=== PATIENT | male | born 2000 | race Caucasian/White ===

== ENCOUNTER 2022-05-12 08:46 | Inpatient (IN) | payer BC, SELFPAY ==
[2022-05-12] MEDS ORDERED: Acetaminophen 325 MG TAB PO PRN (10:55)
[2022-05-12 11:01] VITALS: BMI 18.8
[2022-05-12] MEDS ORDERED: FLU VACC QS2022-23(6MOS UP)/PF 60 MCG/0.5 ML SYRINGE IM ONE (11:15)
[2022-05-12 12:32] LABS: #Eosinphils 0.1 thou/uL (0.0-0.7); #Lymphocytes 1.8 thou/uL (1.20-3.40); #Monocytes 0.9 thou/uL (0.11-0.59); %Basophils 0.1 % (0.0-1.0); %Lymphocytes 20.6 % (21.0-51.0); %Monocytes 9.9 % (0.0-10.0); %Neutrophils 68.3 % (42.0-75.0); Hemoglobin 15.3 g/dL (14.0-18.0); Mean Corpuscular HGB CONC 34.7 g/dL (32.0-36.0); Mean Corpuscular Hemoglobin 30.7 pg (27.0-31.0); Mean Corpuscular Volume 88.4 fl (78.0-98.0); Mean Platelet Volume 9.6 fL (7.4-10.4); Platelet Count 135 10x3/uL (130-400); RBC Distribution Width 11.8 % (11.5-14.5); Red Blood Cell (RBC) Count 4.99 mill/uL (4.70-6.10); White Blood Cell (WBC) Count 8.8 10x3/uL (4.8-10.8)
[2022-05-12 12:53] LABS: Anion Gap 11 mmol/L (10-20); BUN (Urea Nitrogen) 14 mg/dL (8.9-20.6); Calc. Creatinine Clearance 127 mL/min (70-130); Calcium 9.6 mg/dL (7.8-10.44); Carbon Dioxide 23 mmol/L (22-29); Chloride 107 mmol/L (98-107); Estimated GFR 129; Glucose 94 mg/dL (70-105); Potassium 4.5 mmol/L (3.5-5.1); Sodium 136 mmol/L (136-145)
[2022-05-12] MEDS ORDERED: SUGAMMADEX SODIUM 200 MG/2 ML VIAL ONE (13:22)
[2022-05-12] MEDS ORDERED: Midazolam HCl 2 mg/2 ml Vial ONE ×2 (13:22→13:25)
[2022-05-12] MEDS ORDERED: fentaNYL PF 100 MCG/2 ML SYRINGE ONE (13:22)
[2022-05-12] MEDS ORDERED: Sodium Chloride 0.9% 100 ML ONE (13:26)
[2022-05-12] MEDS ORDERED: CEFAZOLIN 2 GM VIAL ONE (13:26)
[2022-05-12] MEDS ORDERED: Ondansetron PF 4 MG/2 ML Vial ONE (13:42)
[2022-05-12] MEDS ORDERED: Rocuronium Bromide 10 MG/ML (10ML VIAL) ONE (13:42)
[2022-05-12] MEDS ORDERED: PROPOFOL 200 MG/20 ML VIAL ONE (13:42)
[2022-05-12] MEDS ORDERED: Ketorolac Tromethamine 30 MG/ML VIAL ONE (13:42)
[2022-05-12] MEDS ORDERED: Bupivacaine HCl 0.5%/Epinephrine 1:200,000/PF 30 ml Vial ONE (14:31)
[2022-05-12] MEDS ORDERED: Ondansetron PF 4 MG/2 ML Vial IVP PRN (14:59)
[2022-05-12] MEDS ORDERED: Fentanyl 100 MCG/2 ML VIAL SLOW IVP PRN (14:59)
[2022-05-12] MEDS ORDERED: FENTANYL 50 MCG/ML 1 ML VIAL ONE (15:02)
[2022-05-12] MEDS ORDERED: FENTANYL 50 MCG/ML 1 ML VIAL SLOW IVP PRN (15:15)
[2022-05-12] MEDS: Lactated Ringer's 1,000 ML IV SCH ×2 (17:22→22:04)
[2022-05-12] MEDS: Ketorolac Tromethamine 30 MG/ML VIAL IVP SCH ×2 (17:27→23:19)
[2022-05-12] MEDS: FENTANYL 50 MCG/ML 1 ML VIAL SLOW IVP PRN (22:45)
[2022-05-13] MEDS: Lactated Ringer's 1,000 ML IV SCH ×3 (04:00→20:00)
[2022-05-13] MEDS: FENTANYL 50 MCG/ML 1 ML VIAL SLOW IVP PRN (04:34)
[2022-05-13] MEDS: Ketorolac Tromethamine 30 MG/ML VIAL IVP SCH ×4 (05:00→23:25)
[2022-05-13 06:02] LABS: #Eosinphils 0.1 thou/uL (0.0-0.7); #Monocytes 1.2 thou/uL (0.11-0.59); #Neutrophils 5.9 thou/uL (1.40-6.50); %Basophils 0.2 % (0.0-1.0); %Eosinophils 1.3 % (0.0-10.0); %Monocytes 12.4 % (0.0-10.0); %Neutrophils 64.1 % (42.0-75.0); Hemoglobin 13.8 g/dL (14.0-18.0); Mean Corpuscular HGB CONC 33.6 g/dL (32.0-36.0); Mean Corpuscular Hemoglobin 29.9 pg (27.0-31.0); Mean Platelet Volume 9.8 fL (7.4-10.4); Platelet Count 129 10x3/uL (130-400); RBC Distribution Width 11.9 % (11.5-14.5); Red Blood Cell (RBC) Count 4.63 mill/uL (4.70-6.10); White Blood Cell (WBC) Count 9.3 10x3/uL (4.8-10.8)
[2022-05-13 06:32] LABS: Anion Gap 10 mmol/L (10-20); BUN (Urea Nitrogen) 12 mg/dL (8.9-20.6); Calc. Creatinine Clearance 133 mL/min (70-130); Carbon Dioxide 26 mmol/L (22-29); Chloride 104 mmol/L (98-107); Estimated GFR 131; Glucose 98 mg/dL (70-105); Potassium 4.5 mmol/L (3.5-5.1); Sodium 135 mmol/L (136-145)
[2022-05-13] MEDS: HYDROcodone/Acetaminophen 5/325 mg Tablet PO PRN ×2 (09:29→20:40)
[2022-05-14] MEDS: Lactated Ringer's 1,000 ML IV SCH ×3 (04:00→21:12)
[2022-05-14] MEDS: Ketorolac Tromethamine 30 MG/ML VIAL IVP SCH ×4 (05:45→23:54)
[2022-05-14] MEDS ORDERED: Senokot 8.6 MG TAB PO PRN (07:52)
[2022-05-14] MEDS: HYDROcodone/Acetaminophen 5/325 mg Tablet PO PRN (09:55)
[2022-05-14] MEDS: Famotidine 20 MG TAB PO SCH ×2 (09:56→21:12)
[2022-05-14] MEDS: Enoxaparin Sodium 40 MG/0.4 ML SYRINGE SC SCH (09:56)
[2022-05-15] MEDS: Lactated Ringer's 1,000 ML IV SCH ×3 (04:23→19:43)
[2022-05-15] MEDS: Ketorolac Tromethamine 30 MG/ML VIAL IVP SCH ×4 (05:36→23:57)
[2022-05-15] MEDS: Famotidine 20 MG TAB PO SCH ×2 (09:10→21:20)
[2022-05-15] MEDS: Enoxaparin Sodium 40 MG/0.4 ML SYRINGE SC SCH ×2 (09:10→09:47)
[2022-05-15] MEDS: HYDROcodone/Acetaminophen 5/325 mg Tablet PO PRN ×2 (09:27→21:20)
[2022-05-16] MEDS: Lactated Ringer's 1,000 ML IV SCH ×3 (04:32→20:00)
[2022-05-16] MEDS: Ketorolac Tromethamine 30 MG/ML VIAL IVP SCH ×4 (05:26→23:15)
[2022-05-16] MEDS: Famotidine 20 MG TAB PO SCH ×2 (08:48→23:09)
[2022-05-16] MEDS: Enoxaparin Sodium 40 MG/0.4 ML SYRINGE SC SCH (08:49)
[2022-05-16] MEDS: HYDROcodone/Acetaminophen 5/325 mg Tablet PO PRN ×2 (15:42→23:10)
[2022-05-17] MEDS: Lactated Ringer's 1,000 ML IV SCH ×3 (04:00→23:08)
[2022-05-17] MEDS: Ketorolac Tromethamine 30 MG/ML VIAL IVP SCH ×3 (05:54→17:27)
[2022-05-17] MEDS: Enoxaparin Sodium 40 MG/0.4 ML SYRINGE SC SCH (09:04)
[2022-05-17] MEDS: Famotidine 20 MG TAB PO SCH ×2 (09:04→20:27)
[2022-05-17] MEDS: HYDROcodone/Acetaminophen 5/325 mg Tablet PO PRN (14:28)
[2022-05-18] MEDS: HYDROcodone/Acetaminophen 5/325 mg Tablet PO PRN ×4 (00:32→20:46)
[2022-05-18] MEDS: Lactated Ringer's 1,000 ML IV SCH ×3 (04:09→21:12)
[2022-05-18] MEDS: Famotidine 20 MG TAB PO SCH ×2 (08:37→20:45)
[2022-05-18] MEDS: Enoxaparin Sodium 40 MG/0.4 ML SYRINGE SC SCH (08:38)
[2022-05-19] MEDS: Lactated Ringer's 1,000 ML IV SCH ×2 (03:30→16:44)
[2022-05-19] MEDS: HYDROcodone/Acetaminophen 5/325 mg Tablet PO PRN ×4 (04:15→20:58)
[2022-05-19] MEDS: Famotidine 20 MG TAB PO SCH ×2 (08:24→20:59)
[2022-05-19] MEDS: Enoxaparin Sodium 40 MG/0.4 ML SYRINGE SC SCH (08:25)
[2022-05-19] MEDS ORDERED: Polyethylene Glycol 3350 17 GM Packet PO SCH (14:30)
[2022-05-20] MEDS: HYDROcodone/Acetaminophen 5/325 mg Tablet PO PRN ×3 (05:06→23:11)
[2022-05-20] MEDS: Famotidine 20 MG TAB PO SCH ×2 (09:41→21:04)
[2022-05-20] MEDS: Enoxaparin Sodium 40 MG/0.4 ML SYRINGE SC SCH (09:41)
[2022-05-21 07:21] LABS: SARS-CoV-2 NAA Rapid Test Not Detected (NotDetected)
[2022-05-21] MEDS: FENTANYL 50 MCG/ML 1 ML VIAL SLOW IVP PRN ×2 (09:57→21:31)
[2022-05-21] MEDS ORDERED: Fentanyl 100 MCG/2 ML VIAL SLOW IVP ONE (09:57)
[2022-05-21] MEDS ORDERED: FENTANYL 50 MCG/ML 1 ML VIAL SLOW IVP SCH (09:58)
[2022-05-21] MEDS: Lactated Ringer's 1,000 ML IV SCH ×2 (10:01→22:39)
[2022-05-21] MEDS: Famotidine 20 MG TAB PO SCH ×2 (11:12→21:31)
[2022-05-21] MEDS ORDERED: fentaNYL PF 100 MCG/2 ML SYRINGE ONE (12:19)
[2022-05-21] MEDS ORDERED: Midazolam HCl 2 mg/2 ml Vial ONE (12:42)
[2022-05-21] MEDS ORDERED: Clindamycin/D5W 900 mg/50 ml Premix Bag ONE (13:15)
[2022-05-21] MEDS ORDERED: Metoclopramide HCl 10 MG/2 ML VIAL ONE (13:33)
[2022-05-21] MEDS ORDERED: Dexamethasone 20 MG/5 ML VIAL ONE (13:33)
[2022-05-21] MEDS ORDERED: Ondansetron PF 4 MG/2 ML Vial ONE (13:33)
[2022-05-21] MEDS ORDERED: PROPOFOL 200 MG/20 ML VIAL ONE (13:33)
[2022-05-21] MEDS ORDERED: Rocuronium Bromide 10 MG/ML (10ML VIAL) ONE (13:33)
[2022-05-21] MEDS ORDERED: Phenylephrine 10 MG/ML VIAL ONE (13:33)
[2022-05-21] MEDS ORDERED: SUGAMMADEX SODIUM 200 MG/2 ML VIAL ONE (14:38)
[2022-05-21] MEDS ORDERED: Bupivacaine HCl 0.5%/Epinephrine 1:200,000/PF 30 ml Vial ONE (14:40)
[2022-05-21] MEDS ORDERED: Promethazine HCl 25 MG/ML VIAL IVPB PRN (15:10)
[2022-05-21] MEDS ORDERED: PACU-Morphine 4MG/ML VIAL SLOW IVP PRN (15:10)
[2022-05-21] MEDS ORDERED: Meperidine HCl/PF 25 MG/ML VIAL SLOW IVP PRN (15:10)
[2022-05-21] MEDS ORDERED: Ondansetron HCl/PF 4 MG/2 ML Vial IVP PRN (15:10)
[2022-05-21] MEDS ORDERED: Promethazine HCl 25 MG/ML VIAL IM PRN (15:10)
[2022-05-21] MEDS ORDERED: FENTANYL 50 MCG/ML 1 ML VIAL ONE (15:25)
[2022-05-21] MEDS ORDERED: Promethazine HCl 25 MG/ML VIAL ONE (15:26)
[2022-05-21] MEDS ORDERED: Ketorolac Tromethamine 30 MG/ML VIAL IVP PRN (15:35)
[2022-05-21] MEDS ORDERED: Ketorolac Tromethamine 30 MG/ML VIAL ONE (15:49)
[2022-05-21] MEDS: Enoxaparin Sodium 40 MG/0.4 ML SYRINGE SC SCH ×2 (19:56→21:31)
[2022-05-21] MEDS ORDERED: diphenhydrAMINE 25 MG CAP PO SCH (21:30)
[2022-05-22] MEDS: HYDROcodone/Acetaminophen 5/325 mg Tablet PO PRN ×3 (07:56→21:13)
[2022-05-22] MEDS: Famotidine 20 MG TAB PO SCH ×2 (07:57→21:13)
[2022-05-22] MEDS: Lactated Ringer's 1,000 ML IV SCH ×2 (12:11→22:45)
[2022-05-22] MEDS: Polyethylene Glycol 3350 17 GM Packet PO PRN (17:57)
[2022-05-22] MEDS: Enoxaparin Sodium 40 MG/0.4 ML SYRINGE SC SCH (21:14)
[2022-05-23 05:46] LABS: Hemoglobin 12.4 g/dL (14.0-18.0); Platelet Count 166 10x3/uL (130-400)
[2022-05-23] MEDS: HYDROcodone/Acetaminophen 5/325 mg Tablet PO PRN ×3 (08:20→23:00)
[2022-05-23] MEDS: Famotidine 20 MG TAB PO SCH ×2 (08:21→19:11)
[2022-05-23] MEDS: Enoxaparin Sodium 40 MG/0.4 ML SYRINGE SC SCH (09:21)
[2022-05-23] MEDS: Lactated Ringer's 1,000 ML IV SCH (10:47)
[2022-05-23] MEDS: Polyethylene Glycol 3350 17 GM Packet PO PRN (19:11)
[2022-05-24] MEDS: Lactated Ringer's 1,000 ML IV SCH ×2 (00:49→15:46)
[2022-05-24] MEDS: Famotidine 20 MG TAB PO SCH ×2 (08:05→21:54)
[2022-05-24] MEDS: HYDROcodone/Acetaminophen 5/325 mg Tablet PO PRN ×2 (08:06→17:33)
[2022-05-24] MEDS: Enoxaparin Sodium 40 MG/0.4 ML SYRINGE SC SCH (21:56)
[2022-05-25] MEDS: HYDROcodone/Acetaminophen 5/325 mg Tablet PO PRN ×3 (00:12→23:48)
[2022-05-25] MEDS: Lactated Ringer's 1,000 ML IV SCH ×2 (03:59→18:48)
[2022-05-25] MEDS: Famotidine 20 MG TAB PO SCH ×2 (08:19→23:48)
[2022-05-25] MEDS: Enoxaparin Sodium 40 MG/0.4 ML SYRINGE SC SCH (23:47)
[2022-05-26] MEDS: Lactated Ringer's 1,000 ML IV SCH (06:28)
[2022-05-26] MEDS: HYDROcodone/Acetaminophen 5/325 mg Tablet PO PRN (07:24)
[2022-05-26 08:35] VITALS: BP 106/64; TEMP 97.8
[2022-05-26] MEDS: Famotidine 20 MG TAB PO SCH (09:34)
== END 2022-05-26 12:15 | disposition home or self-care (01) | DRG 164 ==
LOC: SJJU 10:51 → OBSVTOIN 05-13 11:56
PROVIDERS: ADMIT Internal Medicine; ATTEND Internal Medicine
PROC: 0BBK4ZZ Excision of Right Lung, Percutaneous Endoscopic Approach (ICD-10-PCS; principal; 2022-05-12)
PROC: 0B5N4ZZ Destruction of Right Pleura, Percutaneous Endoscopic Approach (ICD-10-PCS; 2022-05-12)
PROC: 0W9930Z Drainage of Right Pleural Cavity with Drainage Device, Percutaneous Approach (ICD-10-PCS; 2022-05-12)
PROC: 0BQC4ZZ Repair Right Upper Lung Lobe, Percutaneous Endoscopic Approach (ICD-10-PCS; 2022-05-21)
DX: J93.83 Other pneumothorax (principal); J98.19 Other pulmonary collapse; J43.9 Emphysema, unspecified; J93.82 Other air leak; K59.00 Constipation, unspecified; Z20.822 Contact with and (suspected) exposure to COVID-19; Z88.0 Allergy status to penicillin
CPT/HCPCS: 36415; 71045; 80048; 82565; 85014; 85018; 85025; 85049; 88305; 88307; 96374; 96375; 96376; A4649; G0378; J1100; J1650; J1885; J2250; J2370; J2405; J2550; J2704; J2765; J3010; J3490; J7120; U0002

== ENCOUNTER 2022-05-28 19:08 | Emergency (ER) | payer BC | END 2022-05-28 21:02 | disposition home or self-care (01) | LOC: ERS 19:08 | DX: J93.83 Other pneumothorax (principal) | CPT/HCPCS: 71045; 93005 ==

== ENCOUNTER 2022-05-29 09:35 | Outpatient (CLI) | payer BC | END 2022-05-29 09:36 | disposition home or self-care (01) | LOC: BICRAD 09:35 | PROVIDERS: ATTEND Thoracic Surgery (Cardiothoracic Vascular Surgery) | DX: J93.0 Spontaneous tension pneumothorax (principal) | CPT/HCPCS: 71046 ==

== ENCOUNTER 2022-05-29 15:10 | Emergency (ER) | payer BC ==
[2022-05-29] MEDS ORDERED: Lidocaine 1% PF 5 ML VIAL ONE (15:42)
== END 2022-05-29 16:31 | disposition home or self-care (01) ==
LOC: ERS 15:10
DX: J93.9 Pneumothorax, unspecified (principal)
CPT/HCPCS: 99284

== ENCOUNTER 2022-05-30 05:50 | Day surgery (SDC) | payer BC ==
[2022-05-30] MEDS ORDERED: fentaNYL PF 100 MCG/2 ML SYRINGE ONE (06:40)
[2022-05-30] MEDS ORDERED: Lidocaine 1% (PF) 30 ML VIAL ONE (06:48)
[2022-05-30] MEDS ORDERED: PROPOFOL 200 MG/20 ML VIAL ONE (07:05)
[2022-05-30] MEDS ORDERED: Bupivacaine/Epinephrine 0.25% 30 ML VIAL ONE (07:08)
[2022-05-30] MEDS ORDERED: HYDROcodone/Acetaminophen 5/325 mg Tablet ONE (08:25)
== END 2022-05-30 08:40 | disposition home or self-care (01) ==
LOC: SDC 05:50
PROVIDERS: ATTEND Thoracic Surgery (Cardiothoracic Vascular Surgery)
PROC: 0W9930Z Drainage of Right Pleural Cavity with Drainage Device, Percutaneous Approach (ICD-10-PCS; principal; 2022-05-30)
DX: J93.83 Other pneumothorax (principal); Z88.0 Allergy status to penicillin
CPT/HCPCS: 71045; 71046; J2001; J2704